=== PATIENT | female | born 1960 | race American Indian/Alaskan Native ===

== ENCOUNTER 2022-06-18 11:43 | Day surgery (SDC) | payer MEDICARE, MEDICAID ==
[2022-06-13 10:40] LABS: BASOPHILS # (AUTO) 0.1 X10'3 (0-0.2); BASOPHILS % (AUTO) 0.8 % (0-1); EOSINOPHILS # (AUTO) 0.2 X10'3 (0-0.9); EOSINOPHILS % (AUTO) 1.6 % (0-6); HEMATOCRIT 41.9 % (35.0-45.0); HEMOGLOBIN 13.9 g/dl (12.0-16.0); LYMPHOCYTES # (AUTO) 2.2 X10'3 (1.1-4.8); LYMPHOCYTES % (AUTO) 18.8 % (21-51); MEAN CORPUSCULAR HEMOGLOBIN 32.3 PG (27.0-31.0); MEAN CORPUSCULAR HGB CONC 33.2 g/dL (33.0-36.5); MEAN CORPUSCULAR VOLUME 97.2 FL (78-98); MEAN PLATELET VOLUME 6.9 FL (7.4-10.4); MONOCYTES # (AUTO) 1.1 X10'3 (0-0.9); MONOCYTES % (AUTO) 9.4 % (2-12); NEUTROPHILS # (AUTO) 8.1 X10'3 (1.8-7.7); NEUTROPHILS % (AUTO) 69.4 % (42-75); PLATELET COUNT 352 X10'3 (140-440); RED BLOOD COUNT 4.31 X10'6 (4.20-5.60); RED CELL DISTRIBUTION WIDTH 14.1 % (11.5-14.5); WHITE BLOOD COUNT 11.6 X10'3 (4.5-11.0)
[2022-06-13 11:00] LABS: APTT 28 SECONDS (22-32)
[2022-06-13 11:06] LABS: ALBUMIN 3.8 G/DL (3.4-5.0); ANION GAP 7 (8-16); BLOOD UREA NITROGEN 21 MG/DL (7-18); BUN/CREATININE RATIO 25.6 (6.6-38.0); CHLORIDE 105 MMOL/L (99-107); CHOL/HDL RATIO 3.4 (0.00-4.99); CHOLESTEROL 135 MG/DL (0-200); CREATININE 0.82 MG/DL (0.40-0.90); GLUCOSE 95 MG/DL (70-104); HDL CHOLESTEROL 40 MG/DL (35-60); LDL CHOLESTEROL 79 MG/DL (50-100); POTASSIUM 4.1 MMOL/L (3.5-5.1); SODIUM 139 MMOL/L (135-145); TOTAL CARBON DIOXIDE 27.1 MMOL/L (24-32); TRIGLYCERIDES 111 MG/DL (20-135); eGFR 70 ML/MIN
[~2022-06-18] VITALS: Ht 162.6 cm; Wt 75.7 kg
[2022-06-18] VITALS (9 sets, daily range): BP systolic 96–130; BP diastolic 59–84
[2022-06-18] MEDS ORDERED: LORazepam 0.5 MG tablet PO PRN (12:05)
[2022-06-18] MEDS ORDERED: diphenhydrAMINE 25mg capsule PO PRN (12:05)
[2022-06-18] MEDS ORDERED: normal saline 1,000 ML IV SCH (12:05)
[2022-06-18] MEDS ORDERED: nitroGLYCERIN-Tridil 50MG/D5W 250 ML IV ONE (13:49)
[2022-06-18] MEDS ORDERED: LIDOcaine 1% (10mg/ml) 2ml vial ONE (13:50)
[2022-06-18] MEDS ORDERED: verapamil 2.5 mg/ml inj IV ONE (13:50)
[2022-06-18] MEDS ORDERED: iohexol 350MG/ML 100ml bottle IV ONE ×2 (13:50→14:27)
[2022-06-18] MEDS ORDERED: heparin 1,000unit/ml 10ml vial 10 ML ONE (13:50)
[2022-06-18] MEDS ORDERED: midazolam 1 mg/ML 2ml injection ONE (13:50)
[2022-06-18] MEDS ORDERED: FENTANYL CITRATE/PF 50 MCG/1 ML VIAL ONE (13:50)
[2022-06-18] MEDS ORDERED: SACU1TAB PO (14:24)
[2022-06-18] MEDS ORDERED: AMOX500C7 PO (14:24)
[2022-06-18] MEDS ORDERED: ATOR40TA72 PO (14:24)
[2022-06-18] MEDS ORDERED: HYDR200T84 PO (14:24)
[2022-06-18] MEDS ORDERED: ADAL40PE SQ (14:24)
[2022-06-18] MEDS ORDERED: SPIR25TA5 PO (14:24)
[2022-06-18] MEDS ORDERED: EMPA10TA PO (14:24)
[2022-06-18] MEDS ORDERED: CETI10TA14 PO (14:24)
[2022-06-18] MEDS ORDERED: OMEP20CA16 PO (14:24)
[2022-06-18] MEDS ORDERED: CARV12.549 PO (14:24)
[2022-06-18] MEDS ORDERED: OMEG-5 PO (14:24)
[2022-06-18] MEDS ORDERED: clopidogrel 300mg tablet ONE (14:27)
[2022-06-18] MEDS ORDERED: aspirin 325mg tablet ONE (14:27)
[2022-06-18] MEDS ORDERED: LIDOcaine 1% 30ml preserv. free vial ONE (14:33)
[2022-06-18] MEDS ORDERED: HYDROcodone/acetaminophen 10/325mg tab PO PRN (15:40)
[2022-06-18] MEDS ORDERED: HYDROcodone/acetaminophen 5mg/325mg tablet PO PRN (15:40)
== END 2022-06-18 17:30 | disposition home or self-care (01) ==
LOC: SSTAY O 11:43
PROVIDERS: ATTEND Student in an Organized Health Care Education/Training Program
DX: R94.39 Abnormal result of other cardiovascular function study (principal); I25.10 Atherosclerotic heart disease of native coronary artery without angina pectoris; I11.0 Hypertensive heart disease with heart failure; I50.22 Chronic systolic (congestive) heart failure; E78.5 Hyperlipidemia, unspecified; M81.0 Age-related osteoporosis without current pathological fracture; M06.9 Rheumatoid arthritis, unspecified; Z88.8 Allergy status to other drugs, medicaments and biological substances; Z87.891 Personal history of nicotine dependence; Z79.899 Other long term (current) drug therapy
CPT/HCPCS: 36415; 80048; 80061; 82948; 85025; 85610; 85730; 93005; 93458; 99152; 99153; A6258; C1725; C1751; C1760; C1769; C1874; C1894; C9600; J1644; J2250; J3010; J3490; J7030; Q0163; Q9967; A6402